=== PATIENT | male | born 1975 | race Caucasian/White ===

== ENCOUNTER 2016-08-15 00:36 | Emergency (ER) | payer MEDICAID ==
[2016-08-15] MEDS: NS 1,000 ML IV ONE ×2 (01:00)
[2016-08-15 01:05] VITALS: TEMP 98.1
--- NOTE | 2016-08-15 01:07 | EDPHY ---
H & P Stated Complaint: AMS Time Seen by Provider: 08/15/16 00:38 HPI/ROS: HPI The patient presents with concerns that his blood pressure is elevated. He is brought in by ambulance after walking up to the paramedics asking for help. He says he does have high blood pressure and takes antihypertensive, though has not been taking it recently. Admits to amphetamine, marijuana, alcohol use tonight. He says he feels like he may be having a panic attack. He denies any suicidal or homicidal ideation REVIEW OF SYSTEMS Constitutional: No fever, no chills. Eyes: No discharge. ENT: No sore throat. Cardiovascular: No chest pain, no palpitations. Respiratory: No cough, no shortness of breath. Gastrointestinal: No abdominal pain, no vomiting. Genitourinary: No hematuria. Musculoskeletal: No back pain. Skin: No rashes. Neurological: No headache. 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, prior amphetamine abuse FHx: PHYSICAL General Appearance: Alert, no distress Eyes: Pupils equal and round no pallor or injection ENT, Mouth: Mucous membranes moist Respiratory: There are no retractions, lungs are clear to auscultation Cardiovascular: Tachycardic, regular rhythm Gastrointestinal: Abdomen is soft and non-tender, no masses, bowel sounds normal Neurological: A&O, moves all extremities Skin: Warm and dry, no rashes Musculoskeletal: Neck is supple non tender Extremities: symmetrical, full range of motion Psychiatric: Patient is oriented X 3, there is no agitation Source: Patient, EMS - Personal History Current Tetanus Diphtheria and Acellular Pertussis (TDAP): Yes - Medical/Surgical History Hx Asthma: No Hx Chronic Respiratory Disease: No Hx Diabetes: No Hx Cardiac Disease: No Hx Renal Disease: No Hx Cirrhosis: No Hx Alcoholism: No Hx HIV/AIDS: No Hx Splenectomy or Spleen Trauma: No Other PMH: Leg surgery - Social History Smoking Status: Current every day smoker Constitutional: Initial Vital Signs Temperature (C) 36.7 C 08/15/16 01:03 Heart Rate 120 H 08/15/16 01:03 Respiratory Rate 18 08/15/16 01:03 Blood Pressure 140/70 H 08/15/16 01:03 O2 Sat (%) 96 08/15/16 01:03 O2 Delivery Mode Nasal Cannula Allergies/Adverse Reactions: Penicillins Allergy (Verified 08/15/16 01:03) Home Medications: Medication Instructions Recorded NK [No Known Home Meds] 08/15/16 Medical Decision Making Differential Diagnosis: This is a 41-year-old male who presents brought in by ambulance with concern for elevated blood pressure. On exam, his blood pressure is somewhat elevated. He admits to amphetamine, marijuana, alcohol use tonight and I feel this is the cause of his symptomatology. Other possibilities include hypertension, alcohol intoxication. Patient was given IV fluids in the emergency room for tachycardia with some improvement. His U tox was negative, however given that the patient admits to drug use I feel this is a false negative. He asked to go home to the senior care and has money for a taxi. He is not suicidal or homicidal. I feel this is reasonable. He will be discharged. - Data Points Laboratory Results: 08/15/16 02:15 Urine Opiates Screen NEGATIVE (NEGATIVE) Urine Barbiturates NEGATIVE (NEGATIVE) Ur Phencyclidine Scrn NEGATIVE (NEGATIVE) Ur Amphetamine Screen NEGATIVE (NEGATIVE) U Benzodiazepines Scrn NEGATIVE (NEGATIVE) Urine Cocaine Screen NEGATIVE (NEGATIVE) U Marijuana (THC) Screen NEGATIVE (NEGATIVE) Medications Given: Discontinued Medications Sodium Chloride (Ns) 1,000 mls @ 0 mls/hr IV ONCE ONE PRN Reason: Wide Open Stop: 08/15/16 01:10 Last Admin: 08/15/16 01:00 Dose: 1,000 mls Sodium Chloride (Ns) 1,000 mls @ 0 mls/hr IV ONCE ONE PRN Reason: Wide Open Stop: 08/15/16 01:10 Last Admin: 08/15/16 01:00 Dose: 1,000 mls Departure - Departure Disposition: Home, Routine, Self-Care Clinical Impression: Tachycardia, Amphetamine abuse, Alcohol intoxication Condition: Good Instructions: Polysubstance Abuse (ED) Additional Instructions: Please return to the emergency room if your worse in any way. Referrals: [facility] [Outside] - As per Instructions [facility] [Outside] - As per Instructions
[2016-08-15] MEDS ORDERED: HYDROmorphONE/DILAUDID 1 MG/ML SYR ONE (01:41)
[2016-08-15] MEDS ORDERED: CEFAZOLIN 2 GM/DEXTROSE/100 ML BAG IV ONE (01:49)
[2016-08-15 02:55] VITALS: RESP 16; O2SAT 99
[2016-08-15 02:58] VITALS: BP 144/74; PULSE 91
== END 2016-08-15 02:52 | disposition home or self-care (01) ==
DX: F15.10 Other stimulant abuse, uncomplicated (principal); R00.0 Tachycardia, unspecified; F10.129 Alcohol abuse with intoxication, unspecified; I10 Essential (primary) hypertension; F17.200 Nicotine dependence, unspecified, uncomplicated
CPT/HCPCS: 80305; G0480; J0690; J1170

== ENCOUNTER 2016-08-15 08:32 | Emergency (ER) | payer MEDICAID ==
[2016-08-15 09:24] LABS: % IMMATURE GRANULYOCYTES 0.1 % (0.0-1.1); ABSOLUTE IMMATURE GRANULOCYTES 0.01 10^3/uL (0.00-0.10); ADD DIFF? NO; ADD MORPH? NO; ADD SCAN? NO; ATYPICAL LYMPHOCYTE FLAG 10 (0-99); FRAGMENT RBC FLAG 0 (0-99); HEMATOCRIT 43.6 % (40.0-51.0); HEMOGLOBIN 15.1 g/dL (13.7-17.5); LEFT SHIFT FLG 0 (0-99); LIPEMIA HEMOLYSIS FLAG 90 (0-99); MEAN CELL HEMOGLOBIN 30.9 pg (27.9-34.1); MEAN CELL HEMOGLOBIN CONCENTR. 34.6 g/dL (32.4-36.7); MEAN CELL VOLUME 89.3 fL (81.5-99.8); MEAN PLATELET VOLUME 9.4 fL (8.7-11.7); PLATELET CLUMPS FLAG 0 (0-99); PLATELET COUNT 279 10^3/uL (150-400); RED BLOOD CELL COUNT 4.88 10^6/uL (4.40-6.38); RED CELL DISTRIBUTION WIDTH 13.1 % (11.5-15.2)
[2016-08-15 09:38] LABS: ANION GAP 12 mEq/L (8-16); CALCIUM 9.4 mg/dL (8.5-10.4); CARBON DIOXIDE 24 mEq/l (22-31); CHLORIDE 105 mEq/L (97-110); CREATININE 0.8 mg/dL (0.7-1.3); ETHANOL SERUM < 10 mg/dL (0-10); GLOMERULAR FILTRATION RATE > 60; GLUCOSE 128 mg/dL (70-100); POTASSIUM 3.7 mEq/L (3.5-5.2); SODIUM 141 mEq/L (134-144)
--- NOTE | 2016-08-15 09:42 | EDPHY ---
H & P Stated Complaint: Hearing Voices, Wants Psych evaluation HPI/ROS: CHIEF COMPLAINT: Patient has no specific complaints at the time of my interview HISTORY OF PRESENT ILLNESS: This is a 41-year-old male brought to the emergency department by ambulance. Apparently he called the ambulance himself. [facility]. He cannot provide a coherent history to me. He does report being an IV methamphetamine user and states that he last used last night. He was seen here yesterday with complaint of hypertension. At that time he told the emergency department physician that he has been prescribed antihypertensives in the past but is not taking them. At the time of my interview he denies any medical problems. When questioned further he states that he has been told he has psychiatric illness but is unable to further elucidate. He spoke to me about his "energy field". He tells me that he is hearing voices that are insulting. He tells me that he sometimes sees things that are not there. REVIEW OF SYSTEMS: I doubt the veracity of his answers to ROS questions. Source: Patient, EMS - Personal History Current Tetanus/Diphtheria Vaccine: No Current Tetanus Diphtheria and Acellular Pertussis (TDAP): No - Medical/Surgical History Hx Asthma: No Hx Chronic Respiratory Disease: No Hx Diabetes: No Hx Cardiac Disease: No Hx Renal Disease: No Hx Cirrhosis: No Hx Alcoholism: No Hx HIV/AIDS: No Hx Splenectomy or Spleen Trauma: No Other PMH: Leg surgery, Schizophrenia, Psychosis with psychotic features. - Social History Smoking Status: Current every day smoker Alcohol Use: Occasionally Drug Use: Other (Methamphetamine) - Physical Exam Exam: General Appearance: Alert. Vital signs reviewed. Blood pressure 133/94 at triage. Discharge hold, poor personal hygiene. Eyes: Pupils equal and round, no conjunctival injection, no discharge. Anicteric. ENT, Mouth: Mucous membranes are moist, no oropharyngeal erythema or edema. Neck: No lymphadenopathy, supple. Respiratory: Lungs are clear to auscultation; no wheezes, rales, or rhonchi. Cardiovascular: Regular rate and rhythm; no murmur, rub, or gallop. Gastrointestinal: Abdomen is soft and nontender, no masses or organomegaly, bowel sounds normal. Skin: Warm and dry, no rashes on exposed skin, normal color. Multiple tattoos. No abscesses noted on upper extremities. Back: Nontender to palpation over the thoracolumbar spine. Extremities: No lower extremity edema, no calf tenderness or swelling. Neurological: Falls asleep during our conversation, easily awakened. Moving all four extremities easily and equally. Psychiatric: Normal affect. No agitation. Constitutional: Initial Vital Signs Temperature (C) 36.3 C 08/15/16 08:43 Heart Rate 80 08/15/16 08:43 Respiratory Rate 18 08/15/16 08:43 Blood Pressure 133/94 H 08/15/16 08:43 O2 Sat (%) 98 08/15/16 08:43 O2 Delivery Mode Room Air Allergies/Adverse Reactions: Penicillins Allergy (Verified 08/15/16 08:42) Home Medications: Medication Instructions Recorded NK [No Known Home Meds] 08/15/16 Medical Decision Making ED Course/Re-evaluation: 41-year-old homeless male who reports hearing voices. He admits to being an IV methamphetamine user. He is not suicidal or homicidal. It is not clear to me whether not he has a psychiatric history. He is hypertensive in the emergency department and was hypertensive when evaluated yesterday. He denies having any medical history but I do not think that he is a reliable historian. At the time of my interview he falls asleep easily and awakens easily. His urine drug screen is positive for amphetamines and marijuana. I do not think that he meets criteria for a mental health hold. I do not feel that he is a danger to himself or others. He is not requesting help with substance abuse. I re-evaluated the patient at 2:00 p.m.. He is now bit more awake, having slept most of the morning. He is still unable to tell me whether not he has been diagnosed with mental illness. He has taken various medications in the past including Paxil, Wellbutrin, and BuSpar. He is not sure whether he has been diagnosed with depression. He is also not certain whether not he has been in a psychiatric hospital but he does tell me that he had a 2 week hospitalization at some point in the past. He denies visual or auditory hallucinations at this point. He states that he feels sad and he would like to figure out what is going on. He denies suicidality or homicidality. When I asked him to be more specific about what he is experiencing he tells me that sometimes he is talking to a person that he thinks he nose and discovers is that he does not know him. He would like to return to work but does not feel capable of doing so. He does not meet criteria for mental health hold. I am recommending that he spend the night at the [facility] and follow-up at the crisis clinic in the morning. Case management will help to facilitate this. Differential Diagnosis: I considered a differential diagnosis that includes but is not limited to polysubstance abuse, alcohol intoxication, psychosis, depression, sean, suicidality, and homicidality. - Data Points Laboratory Results: Laboratory Results 08/15/16 09:00 08/15/16 09:15 08/15/16 08/15/16 08/15/16 09:15 09:15 09:00 WBC 6.93 10^3/uL 10^3/uL (3.80-9.50) RBC 4.88 10^6/uL 10^6/uL (4.40-6.38) Hgb 15.1 g/dL g/dL (13.7-17.5) Hct 43.6 % % (40.0-51.0) MCV 89.3 fL fL (81.5-99.8) MCH 30.9 pg pg (27.9-34.1) MCHC 34.6 g/dL g/dL (32.4-36.7) RDW 13.1 % % (11.5-15.2) Plt Count 279 10^3/uL 10^3/uL (150-400) MPV 9.4 fL fL (8.7-11.7) Neut % (Auto) 71.6 % % (39.3-74.2) Lymph % (Auto) 17.6 % % (15.0-45.0) Mitchell % (Auto) 8.7 % % (4.5-13.0) Eos % (Auto) 1.4 % % (0.6-7.6) Baso % (Auto) 0.6 % % (0.3-1.7) Nucleat RBC Rel Count 0.0 % % (0.0-0.2) Absolute Neuts (auto) 4.96 10^3/uL 10^3/uL (1.70-6.50) Absolute Lymphs (auto) 1.22 10^3/uL 10^3/uL (1.00-3.00) Absolute Monos (auto) 0.60 10^3/uL 10^3/uL (0.30-0.80) Absolute Eos (auto) 0.10 10^3/uL 10^3/uL (0.03-0.40) Absolute Basos (auto) 0.04 10^3/uL 10^3/uL (0.02-0.10) Absolute Nucleated RBC 0.00 10^3/uL 10^3/uL (0-0.01) Immature Gran % 0.1 % % (0.0-1.1) Immature Gran # 0.01 10^3/uL 10^3/uL (0.00-0.10) Sodium 141 mEq/L mEq/L (134-144) Potassium 3.7 mEq/L mEq/L (3.5-5.2) Chloride 105 mEq/L mEq/L (97-110) Carbon Dioxide 24 mEq/l mEq/l (22-31) Anion Gap 12 mEq/L mEq/L (8-16) BUN 14 mg/dL mg/dL (7-23) Creatinine 0.8 mg/dL mg/dL (0.7-1.3) Estimated GFR > 60 Glucose 128 mg/dL H mg/dL (70-100) Calcium 9.4 mg/dL mg/dL (8.5-10.4) Urine Opiates Screen NEGATIVE (NEGATIVE) Urine Barbiturates NEGATIVE (NEGATIVE) Ur Phencyclidine Scrn NEGATIVE (NEGATIVE) Ur Amphetamine Screen NON-NEGATIVE H (NEGATIVE) U Benzodiazepines Scrn NEGATIVE (NEGATIVE) Urine Cocaine Screen NEGATIVE (NEGATIVE) U Marijuana (THC) Screen NON-NEGATIVE H (NEGATIVE) Ethyl Alcohol < 10 mg/dL mg/dL (0-10) Departure - Departure Disposition: Home, Routine, Self-Care Clinical Impression: Amphetamine abuse Condition: Good Instructions: Methamphetamine Abuse (ED) Additional Instructions: [facility]. Referrals: Leyda Black PA [Primary Care Provider] - As per Instructions [facility] [Outside] - As per Instructions Narcotics Anonymous [Outside] - As per Instructions
[2016-08-15 12:53] VITALS: RESP 16
[2016-08-15 14:33] VITALS: BP 113/73; PULSE 81; TEMP 98.2; O2SAT 98
== END 2016-08-15 15:02 | disposition home or self-care (01) ==
LOC: EDUNIT#
DX: F15.10 Other stimulant abuse, uncomplicated (principal); F17.200 Nicotine dependence, unspecified, uncomplicated
CPT/HCPCS: 80305; G0480

== ENCOUNTER 2018-04-04 12:19 | Emergency (ER) | payer MEDICAID ==
[2018-04-04 12:27] VITALS: BP 130/88
--- NOTE | 2018-04-04 13:14 | EDPHY ---
H & P Stated Complaint: rolled l ankle today stepping off of curb Time Seen by Provider: 04/04/18 13:04 HPI/ROS: Chief Complaint: Left ankle pain HPI: The patient presents the ED with complaints of left ankle pain and swelling after he accidentally inverted his ankle while walking today. The patient denies any acute numbness or weakness. He denies additional injury. The patient is not anticoagulated. He has moderate pain along the lateral aspect of the ankle which is worsened with palpation and movement. REVIEW OF SYSTEMS: Neuro: no headache, numbness, weakness Musculoskeletal: as above Skin: no abrasion or lacerations Source: Patient Exam Limitations: No limitations - Personal History Current Tetanus Diphtheria and Acellular Pertussis (TDAP): Yes - Medical/Surgical History Hx Asthma: No Hx Chronic Respiratory Disease: No Hx Diabetes: No Hx Cardiac Disease: No Hx Renal Disease: No Hx Cirrhosis: No Hx Alcoholism: No Hx HIV/AIDS: No Hx Splenectomy or Spleen Trauma: No Other PMH: Leg surgery, Schizophrenia, Psychosis with psychotic features. - Social History Smoking Status: Current every day smoker - Physical Exam Exam: General appearance: alert no distress Left ankle: There is swelling and tenderness over the lateral. Ankle joint is stable and there is no tenderness over the Achilles tendon. The foot is nontender without swelling. Neurologic exam: The patient has normal sensation and motor function distal to the injury. Vascular exam: Normal pulses and capillary refill in the foot DIFFERENTIAL DIAGNOSIS: After history and physical exam differential diagnosis was considered for ankle injury including sprain, fracture, dislocation and soft tissue injury. Constitutional: Initial Vital Signs Temperature (C) 37.1 C 04/04/18 12:23 Heart Rate 87 04/04/18 12:23 Respiratory Rate 17 04/04/18 12:23 Blood Pressure 130/88 H 04/04/18 12:23 O2 Sat (%) 93 04/04/18 12:23 O2 Delivery Mode Room Air Allergies/Adverse Reactions: Penicillins Allergy (Verified 04/04/18 12:23) Home Medications: Medication Instructions Recorded NK [No Known Home Meds] 08/15/16 Medical Decision Making - Diagnostics Imaging Results: Left ankle x-ray: Images reviewed by myself, impression negative for acute fracture ED Course/Re-evaluation: Patient presents to the ED with acute left ankle pain following a inversion type injury. X-ray demonstrates no evidence of an acute fracture. The patient has been placed in a Altman boot. The patient is advised to weight bear as tolerated. Plan will be for NSAIDs and outpatient follow-up. Differential Diagnosis: Differential diagnosis considered includes fracture, sprain, dislocation Departure - Departure Disposition: Home, Routine, Self-Care Clinical Impression: Ankle sprain Qualifiers: Encounter type: initial encounter Involved ligament of ankle: other ligament Laterality: left Qualified Code(s): S93.492A - Sprain of other ligament of left ankle, initial encounter Condition: Good Instructions: Ankle Sprain (ED) Additional Instructions: 1. Altman boot as needed for comfort. 2. Take Ibuprofen or Motrin 600 mg by mouth three times a day. 3. [facility] for any ongoing pain, swelling or immobility. Referrals: [facility],. [Clinic] - As per Instructions
== END 2018-04-04 13:45 | disposition home or self-care (01) ==
DX: S93.492A Sprain of other ligament of left ankle, initial encounter (principal); W10.1XXA Fall (on)(from) sidewalk curb, initial encounter; F17.200 Nicotine dependence, unspecified, uncomplicated